=== PATIENT | male | born 1980 | race Two or more races ===

== ENCOUNTER 2024-08-25 08:59 | Emergency (ER) | payer OTHER ==
[2024-08-25 09:41] VITALS: BP 139/89; PULSE 96; RESP 18; TEMP 97.7; BMI 30.8
[2024-08-25] MEDS: LACTATED RINGERS SOLUTION 1000 ML INFUS.BAG IV ONE (09:51)
[2024-08-25 10:24] LABS: BASO % 0.3 % (0-2.0); EOS % 1.8 % (0-4.5); HEMATOCRIT 47.6 % (35.4-49); HEMOGLOBIN 16.6 GM/dL (11.7-16.9); MCH 30.8 pg (25.7-33.7); MCHC 34.8 g/dl (32.0-35.9); MEAN CELL VOLUME 88.4 fl (80-96); MEAN PLT VOLUME 8.8 fl (7.5-11.1); MONO % 7.6 % (3.8-10.2); NEUT % 61.3 % (42.8-82.8); PLATELET COUNT 238 10^3/uL (134-434); RBC 5.38 M/mm3 (4.00-5.60); RDW 12.7 % (11.9-15.9); VENOUS O2 SATURATION 58.1 % (70-80); VENOUS PCO2 50.5 mmHg (38-52); VENOUS PH 7.313 (7.310-7.410); WHITE BLOOD COUNT 7.1 K/mm3 (4.0-10.0)
[2024-08-25 10:26] LABS: PH,URINE 5.5 (5.0-8.0); URINE APPEARANCE CLEAR; URINE BILIRUBIN NEGATIVE (NEGATIVE); URINE COLOR YELLOW; URINE GLUCOSE (UA) 3+ (NEGATIVE); URINE KETONE TRACE (NEGATIVE); URINE LEUK ESTERASE NEGATIVE (NEGATIVE); URINE NITRITE NEGATIVE (NEGATIVE); URINE PROTEIN NEGATIVE (NEGATIVE); URINE UROBILINOGEN 0.2 mg/dL (0.2-1.0)
[2024-08-25 10:52] LABS: POTASSIUM 4.8 mmol/L (3.5-5.1)
[2024-08-25 10:55] LABS: ALBUMIN 4.2 g/dl (3.4-5.0); BLOOD UREA NITROGEN 24.5 mg/dL (7-18); CALCIUM 9.3 mg/dL (8.5-10.1)
[2024-08-25 10:58] LABS: CREATININE 1.2 mg/dL (0.55-1.3)
[2024-08-25 11:00] LABS: BILIRUBIN,TOTAL 0.8 mg/dL (0.2-1); TOT PROT 7.7 g/dl (6.4-8.2)
== END 2024-08-25 12:04 | disposition home or self-care (01) ==
LOC: JER 08:59
DX: E11.65 Type 2 diabetes mellitus with hyperglycemia (principal)
CPT/HCPCS: 36415; 80053; 81003; 82010; 82803; 82962; 85025; 87086; 99283-25